=== PATIENT | male | born 2000 | race Two or more races ===

== ENCOUNTER 2020-03-04 13:42 | Emergency (ER) | payer BC, OTHER ==
--- NOTE | 2020-03-04 13:55 | TELE ---
HPI Do you have fever,cough or shortness of breath?: No - General Reason For Visit: COVID TESTING History Source: Patient Exam Limitations: No Limitations - Medical Decision Making 03/04/20 13:54 20-year-old male no significant past medical history requesting COVID testing for recent call for positive exposure. Patient is asymptomatic. Denies short Physical exam deferred secondary to an inability to video chat Patient to proceed to [facility] for [facility] testing instructions below given via backline health To obtain your prescribed COVID testing, go to the [facility] at [address] [place] [address]. Proceed across the parking lot to the GREEN parking spaces with COVID Testing signs next to the Emergency Room entrance. Call [phone] and our team will complete your testing. Thank you for using our Virtual Urgent Care service! Discharge Diagnosis at time of Disposition: Counseled about COVID-19 virus infection - Referrals - Patient Instructions Discharge Instructions: [facility]-Coronavirus Instructions - Discharge Disposition: HOME Condition at time of Disposition: Stable
== END 2020-03-04 14:00 | disposition home or self-care (01) ==
LOC: JVIRT 13:42
DX: Z20.828 Contact with and (suspected) exposure to other viral communicable diseases (principal)
CPT/HCPCS: 36415; 86769; 99441-95; U0003

== ENCOUNTER 2020-05-28 17:11 | Emergency (ER) | payer BC ==
--- NOTE | 2020-05-28 17:21 | TELE ---
HPI Do you have fever,cough or shortness of breath?: No - General Reason For Visit: COVID 19 TEST History Source: Patient Exam Limitations: No Limitations - History of Present Illness 05/28/20 17:18 20-year-old male history of asthma otherwise healthy evaluated via telemedicine requesting Covid testing. States mild sore throat and fatigue since this morning. Denies fever, chills, cough, shortness of breath, chest pain, abdomi nal pain, recent travel or recent known sick contacts. Tested negative for Covid 2 months ago. PE: speaking full sentences, not in respiratory distress - Medical Decision Making 05/28/20 17:21 Covid test ordered Discharge Diagnosis at time of Disposition: Sore throat Fatigue Qualifiers: Fatigue type: unspecified Qualified Code(s): R53.83 - Other fatigue - Referrals Follow-up Referral(s): Luis Munoz [Primary Care Provider] - - Patient Instructions Discharge Instructions: [facility] - Coronavirus Instructions Additional Discharge Instructions: You will receive a phone call with your Covid test results as soon as they become available - Discharge Disposition: HOME Condition at time of Disposition: Stable
== END 2020-05-28 17:23 | disposition home or self-care (01) ==
LOC: JVIRT 17:11
DX: R53.83 Other fatigue (principal); J02.9 Acute pharyngitis, unspecified; Z03.818 Encounter for observation for suspected exposure to other biological agents ruled out
CPT/HCPCS: C9803; Q3014-GT; U0003

== ENCOUNTER 2020-06-27 16:03 | Emergency (ER) | payer BC | END 2020-06-27 19:26 | disposition home or self-care (01) | LOC: JVIRT 16:03 | DX: U07.1 COVID-19 (principal) | CPT/HCPCS: 87880; C9803; G2012-GT; Q3014-GT; U0003 ==

== ENCOUNTER 2021-03-02 11:58 | Emergency (ER) | payer BC ==
[2021-03-02 12:03] VITALS: BP 126/73; PULSE 80; TEMP 98.1; BMI 22.1
[2021-03-02] MEDS ORDERED: IBUPROFEN 600 MG TABLET (FP) PO ONE ×2 (12:11→12:17)
[2021-03-04 18:08] LABS: SARS-CoV-2 NAA Not Detected (Not Detected)
== END 2021-03-02 13:28 | disposition home or self-care (01) ==
LOC: FER 11:58
DX: R07.0 Pain in throat (principal); R09.81 Nasal congestion
CPT/HCPCS: 87804; 87880; 99283-25; C9803; U0003; U0005